=== PATIENT | female | born 1990 | race Caucasian/White ===

== ENCOUNTER 2018-01-29 17:12 | Inpatient (IN) | payer BC ==
[~2018-01-29 17:12] MED LIST: Misoprostol 25 MCG (1/4 of 100 MCG) Tab VAG PRN
[2018-01-29] MEDS ORDERED: Lidocaine 1% 50 ML MDV INJECT PRN (17:51)
[2018-01-29] MEDS ORDERED: Tranexamic Acid 1,000 MG in Sodium Chloride 0.9% 100 ML IV PRN (17:51)
[2018-01-29] MEDS ORDERED: Nalbuphine 10 MG/1 ML Vial IVPUSH PRN (17:51)
[2018-01-29] MEDS ORDERED: Carboprost Tromethamine 250 MCG/1 ML Amp IM PRN (17:51)
[2018-01-29] MEDS ORDERED: Misoprostol 200 MCG Tab PO PRN (17:51)
[2018-01-29] MEDS ORDERED: Water For Irrigation,Sterile 1,000 ML Container IRR PRN (17:51)
[2018-01-29] MEDS ORDERED: Ampicillin 2 GM in Sodium Chloride 0.9% 100 ML IV ONE (17:51)
[2018-01-29] MEDS ORDERED: Sodium Chloride 0.9% 10 ML Syringe FLUSH PRN (17:51)
[2018-01-29] MEDS ORDERED: Sodium Chloride 0.9% 2.5 ML Syringe FLUSH PRN (17:51)
[2018-01-29] MEDS ORDERED: Butorphanol 1 MG/ML SDV IVPUSH PRN (17:51)
[2018-01-29] MEDS ORDERED: Methylergonovine 0.2 MG/1 ML Amp IM PRN (17:51)
[2018-01-29] MEDS ORDERED: Oxytocin/0.9 % Sodium Chloride 30 UNIT/500 ML BAG IV SCH ×2 (18:00→18:15)
[2018-01-29] MEDS ORDERED: Terbutaline 1 MG/ML SDV SUBCUT PRN (18:11)
[2018-01-29] MEDS ORDERED: Misoprostol 25 MCG (1/4 of 100 MCG) Tab VAG SCH (18:30)
[2018-01-29] MEDS: Lactated Ringers 1,000 ML IV SCH (18:40)
[2018-01-29] MEDS ORDERED: Dextrose 5%-0.9% NaCl 1,000 ML IV SCH (19:45)
[2018-01-29] MEDS: Ampicillin 1 GM in Sodium Chloride 0.9% 50 ML IV SCH (23:05)
[2018-01-30] MEDS ORDERED: Ampicillin 1 GM in Sodium Chloride 0.9% 50 ML IV SCH ×2
[2018-01-30] MEDS: Ampicillin 1 GM in Sodium Chloride 0.9% 50 ML IV SCH ×6 (02:54→22:37)
[2018-01-30] MEDS ORDERED: Nalbuphine 10 MG/ML 10 ML MDV IVPUSH PRN (07:15)
[2018-01-30] MEDS: Lactated Ringers 1,000 ML IV SCH ×4 (13:52→20:19)
--- NOTE | 2018-01-30 14:08 | PCM.PREANE ---
Preanesthetic Assessment - Procedure Proposed Procedure: labor epidural - Anesthesia/Transfusion/Family Hx Anesthesia History: Prior Anesthesia Without Reaction Transfusion History: No Prior Transfusion(s) Intubation History: Unknown Additional History: complicated patient due to her Diabetes. On insulin pump. - Review of Systems General: Other (active labor) Pulmonary: No Symptoms Cardiovascular: Other (HTN) Gastrointestinal: Other (GERD) Neurological: No Symptoms (]) Other: Reports: Diabetes - Physical Assessment NPO Status Date: 01/29/18 NPO Status Time: 22:00 Height: 5 ft 1.81 in Weight: 263 lb 15.986 oz ASA Class: 3 Mental Status: Alert & Oriented x3 Airway Class: Mallampati = 2 Dentition: Reports: Normal Dentition Thyro-Mental Finger Breadths: 4 Mouth Opening Finger Breadths: 3 ROM/Head Extension: Limited/Partial Lungs: Clear to Auscultation, Normal Respiratory Effort, Other (left side with rhonchi before a clearing cough) Cardiovascular: Regular Rate, Regular Rhythm, No Murmurs - Lab Values: Laboratory Last Values WBC 8.21 K/uL (4.0-11.0) 01/29/18 18:10 RBC 4.85 M/uL (4.30-5.90) 01/29/18 18:10 Hgb 12.2 g/dL (12.0-16.0) 01/29/18 18:10 Hct 36.7 % (36.0-46.0) 01/29/18 18:10 MCV 75.7 fL (80.0-98.0) L 01/29/18 18:10 MCH 25.2 pg (27.0-32.0) L 01/29/18 18:10 MCHC 33.2 g/dL (31.0-37.0) 01/29/18 18:10 RDW Std Deviation 42.1 fl (28.0-62.0) 01/29/18 18:10 RDW Coeff of Deandra 15 % (11.0-15.0) 01/29/18 18:10 Plt Count 227 K/uL (150-400) 01/29/18 18:10 MPV 11.20 fL (7.40-12.00) 01/29/18 18:10 Nucleated RBC % 0.0 /100WBC 05/20/18 18:10 Nucleated RBCs # 0 K/uL 01/29/18 18:10 POC Glucose 79 mg/dL (60-110) 01/30/18 10:58 Blood Type A POSITIVE 01/29/18 18:10 Antibody Screen NEGATIVE 01/29/18 18:10 - Allergies Allergies/Adverse Reactions: Allergies Allergy/AdvReac Type Severity Reaction Status Date / Time Sulfa (Sulfonamide Allergy Cannot Verified 01/29/18 17:45 Antibiotics) Remember - Blood Blood Available: No Product(s) Available: None - Anesthesia Plan Pre-Op Medication Ordered: None - Acknowledgements Anesthesia Type Planned: Epidural Pt an Appropriate Candidate for the Planned Anesthesia: Yes Alternatives and Risks of Anesthesia Discussed w Pt/Guardian: Yes Pt/Guardian Understands and Agrees with Anesthesia Plan: Yes PreAnesthesia Questionnaire - Past Health History Medical/Surgical History: Denies Medical/Surgical History HEENT History: Reports: None Respiratory History: Reports: Asthma TOUCH UP CARVER History: Reports: , Therapeutic Other OB/BYN History: ovarian cyst removal Psychiatric History: Reports: Anxiety, Bipolar, Depression Endocrine/Metabolic History: Reports: Diabetes, Gestational, Obesity/BMI 30+ - Infectious Disease History Infectious Disease History: Reports: Chicken Pox Other Infectious Disease History: childhood - Past Surgical History HEENT Surgical History: Reports: None Respiratory Surgical History: Reports: None Endocrine Surgical History: Reports: None - SUBSTANCE USE Smoking Status *Q: Former Smoker Tobacco Use Within Last Twelve Months: Cigarettes Second Hand Smoke Exposure: Yes Recreational Drug Use History: No - HOME MEDS Home Medications: Home Meds Insulin Isophane NPH, Human [NovoLIN N] 44 units SQ QAM 01/29/18 [History] Insulin Regular, Human [Novolin R] 26 units .ROUTE QAM 01/29/18 [History] Insulin Regular, Human [Novolin R] 38 units .ROUTE QPM 01/29/18 [History] Montelukast [Singulair] 10 mg PO BEDTIME 01/29/18 [History] Nph, Human Insulin Isophane [Humulin N] 38 units .ROUTE QPM 01/29/18 [History] [id number]/Iron Fumarate/FA/DSS [ 19 Tablet] 1 each PO DAILY 01/29/18 [ History] - CURRENT (IN HOUSE) MEDS Current Meds: Current Medications Butorphanol Tartrate (Stadol) 1 mg IVPUSH Q1H PRN PRN Reason: Pain Last Admin: 01/30/18 11:02 Dose: 1 mg Carboprost Tromethamine (Hemabate Ds) 250 mcg IM ASDIRECTED PRN PRN Reason: Post Hemorrhage Lactated Ringer's (Ringers, Lactated) 1,000 mls @ 150 mls/hr IV ASDIRECTED JORDAN Last Admin: 01/30/18 13:52 Dose: 999 mls/hr Oxytocin/Sodium Chloride (Oxytocin 30 Unit/500 Ml-Ns) 30 unit in 500 mls @ 2 mls/hr IV TITRATE JORDAN Tranexamic Acid 1,000 mg/ (Sodium Chloride) 110 mls @ 660 mls/hr IV ONETIME PRN PRN Reason: Bleeding Insulin Human Regular 100 unit (/ Sodium Chloride) 100 mls @ 0.5 mls/hr IV TITRATE [facility]; Protocol Last Titration: 01/30/18 13:24 Dose: 0.5 unit/hr, 0.5 mls/hr Oxytocin/Sodium Chloride (Oxytocin 30 Unit/500 Ml-Ns) 30 unit in 500 mls @ 2 mls/hr IV TITRATE [facility]; Protocol Last Titration: 01/30/18 13:24 Dose: 10 munits/min, 10 mls/hr Ampicillin Sodium 1 gm/ Sodium (Chloride) 50 mls @ 100 mls/hr IV Q4H [facility] Last Admin: 01/30/18 10:56 Dose: 100 mls/hr Dextrose/Sodium Chloride (Dextrose 5%-Normal Saline) 1,000 mls @ 150 mls/hr IV ASDIRECTED JORDAN Lidocaine HCl (Xylocaine 1%) 50 ml INJECT .ONCE PRN PRN Reason: Laceration repair Methylergonovine Maleate (Methergine) 0.2 mg IM ASDIRECTED PRN PRN Reason: Post Hemorrhage Misoprostol (Cytotec) 200 mcg PO .ONCE PRN PRN Reason: Post Hemorrhage Misoprostol (Cytotec) 25 mcg VAG .ONCE JORDAN Last Admin: 01/29/18 18:51 Dose: 25 mcg Misoprostol (Cytotec) 25 mcg VAG Q6H PRN PRN Reason: Cervical Ripening Nalbuphine HCl (Nubain) 10 mg IVPUSH Q1H PRN PRN Reason: Pain (severe 7-10) Sodium Chloride (Saline Flush) 10 ml FLUSH ASDIRECTED PRN PRN Reason: Keep Vein Open Sodium Chloride (Saline Flush) 2.5 ml FLUSH ASDIRECTED PRN PRN Reason: Keep Vein Open Sterile Water (Sterile Water For Irrigation) 1,000 ml IRR ASDIRECTED PRN PRN Reason: delivery Terbutaline Sulfate (Brethine) 0.25 mg SUBCUT ASDIRECTED PRN PRN Reason: Tacysystole Discontinued Medications Ampicillin Sodium 2 gm/ Sodium (Chloride) 100 mls @ 200 mls/hr IV ONETIME ONE Stop: 01/29/18 18:20 Last Admin: 01/29/18 18:40 Dose: 200 mls/hr Nalbuphine HCl (Nubain) 10 mg IVPUSH Q1H PRN PRN Reason: Pain (severe 7-10)
[2018-01-30] MEDS ORDERED: fentaNYL 100 MCG/2 ML SDV ONE ×2 (15:16→20:56)
--- NOTE | 2018-01-30 16:37 | PCM.SN ---
- Free Text/Narrative Note: Patient required additional time to determine best dose and she vasodilated readily to the same. Fluid resuscitation at the bedside was done with good response...fetus handled this well. additional time was required to complete the beginning of the continuous infusion. see anesthetic record and OB [facility] record.
[2018-01-31] MEDS ORDERED: fentaNYL 100 MCG/2 ML SDV ONE (00:47)
[2018-01-31] MEDS ORDERED: Witch Hazel Medicated Pads 40/Jar TOP ONE (05:05)
[2018-01-31] MEDS ORDERED: Benzocaine/Menthol 20%-0.5% Spray 78 GM Cannister ONE (05:06)
[2018-01-31] MEDS ORDERED: Ibuprofen 800 MG Tab PO PRN (07:16)
[2018-01-31] MEDS ORDERED: Witch Hazel Medicated Pads 40/Jar TOP PRN (07:16)
[2018-01-31] MEDS ORDERED: Benzocaine/Menthol 20%-0.5% Spray 78 GM Cannister TOP PRN (07:16)
[2018-01-31] MEDS ORDERED: Aluminum Hydroxide/Magnesium Hydroxide/Simethicone Susp 30 ML Cup PO PRN (07:44)
[2018-01-31] MEDS ORDERED: Hydrocortisone 2.5% Crm 30 GM Tube TOP PRN (07:49)
[2018-01-31] MEDS: Ampicillin 1 GM in Sodium Chloride 0.9% 50 ML IV SCH ×3 (07:57→18:40)
[2018-01-31] MEDS: Ibuprofen 400 MG Tab PO PRN ×2 (08:53→17:48)
[2018-01-31] MEDS: Docusate Sodium 100 MG Cap PO SCH ×2 (08:53→20:22)
--- NOTE | 2018-01-31 09:35 | PCM48HPAN ---
Post Anesthesia Note - EVALUATION WITHIN 48HRS OF ANESTHETIC Vital Signs in Normal Range: Yes Patient Participated in Evaluation: Yes Respiratory Function Stable: Yes Airway Patent: Yes Cardiovascular Function Stable: Yes Hydration Status Stable: Yes Pain Control Satisfactory: Yes Nausea and Vomiting Control Satisfactory: Yes Mental Status Recovered: Yes Resp Rate: 16 - COMMENTS/OBSERVATIONS Free Text/Narrative:: Baby being breast fed by new mom who was ecstatic about the completion of a difficult labor.
--- NOTE | 2018-01-31 10:38 | OR ---
SURGEON: Deya Perales M.D. DATE OF PROCEDURE: 01/31/2018 PREOPERATIVE DIAGNOSES: 1. A 39 and 3 week intrauterine . 2. Induction of labour for diabetes, insulin controlled. POSTOPERATIVE DIAGNOSES: 1. A 39 and 3 week intrauterine . 2. Induction of labour for diabetes, insulin controlled. PROCEDURE: Spontaneous vaginal delivery. Second degree midline laceration repaired. ANESTHESIA: Epidural. ESTIMATED BLOOD LOSS: 450 mL. FINDINGS: Term female, score 9 at 1 minute, 9 at 5 minutes. Weight of 3850 g. Spontaneous delivery, intact placenta, 3-vessel cord. DISPOSITION: Infant to nursery, mom in LDRP. PROCEDURE IN DETAIL: Tori is a 27-year-old, G2, P0-0-1-0 at 39 and 2 weeks' gestational age. She was admitted on the evening of 01/29/2018 for Cytotec induction due to diabetes which has been insulin controlled during the . She was admitted, received a dose of Cytotec, progressed nicely to 3 cm. Glucoses were ranging in the 70s for the most part with an initial one that was in the one teens. She was on insulin drip in most of the labor. She was on 0.5 units/hour. The following morning was initiated on Pitocin augmentation shortly after 9:00 am, underwent amniotomy, clear fluid was returned. At that time, she was found to be 3 cm. She continued to progress and became increasingly uncomfortable over the next few hours and underwent regional anesthesia in the form of epidural. At that time, she was found to be 5 to 6 cm dilated. Continued to progress throughout the afternoon. An IUPC was placed to help monitor the pattern of the Pitocin. At that time, she was found to be 6 cm, 90% effaced, 0 station. heart tones in the 130s with variability. Glucose remained in the 70s. Shortly before midnight, the patient was found to be complete +1 station, was allowed to labor for another hour and began pushing efforts. She pushed well and was able to progress to a +4 station. I was called for delivery. Upon my arrival, the patient placed in modified dorsal lithotomy position. Prepped and draped in the usual aseptic manner. Continued with pushing efforts and was able to deliver infant's head atraumatically, followed by the anterior shoulder, posterior shoulder and the remainder of the body. 's oropharynx and nares were bulb suctioned. Cord clamped x2 and cut. Infant was handed off to her mother, attending nursing staff at her side. Cord arterial, cord venous, cord blood sampling was obtained. Light pressure was applied while the placenta was delivered spontaneously intact. Vigorous fundal and uterine massage then applied while 30 units Pitocin was delivered in 500 mL of IV fluid. Upon inspection of cervix, vaginal sidewalls, and perineum, there was found to be a second-degree midline laceration which was repaired using 3-0 Vicryl in the usual fashion. There was also a first-degree right labial laceration repaired with a [id number] suture. The uterus wanted to become boggy, fit somewhat easily, therefore, continued a second bag of Pitocin and with fundal massage was able to help the uterus contract nicely and hemostasis was present. Sponge count, needle count was correct. The patient tolerated the procedure well overall. She will remain in LDRP, to nursery. RUDI / JOHNY /[id number]
[2018-01-31] MEDS: Acetaminophen/oxyCODONE 325-5 MG Tab PO PRN (20:23)
[2018-02-01] MEDS: Acetaminophen/oxyCODONE 325-5 MG Tab PO PRN (05:51)
[2018-02-01] MEDS: Ampicillin 1 GM in Sodium Chloride 0.9% 50 ML IV SCH (07:40)
--- NOTE | 2018-02-01 09:13 | PCM.PNPP ---
- General Info Date of Service: 02/01/18 Functional Status: Reports: Pain Controlled, Tolerating Diet, Ambulating, Urinating - Review of Systems General: Denies: Fever, Weakness Pulmonary: Denies: Shortness of Breath Cardiovascular: Denies: Chest Pain, Palpitations, Lightheadedness Gastrointestinal: Reports: Flatus. Denies: Abdominal Pain, Nausea, Vomiting Genitourinary: Denies: Flank Pain Skin: Reports: No Symptoms Psychiatric: Reports: No Symptoms - Patient Data Vital Signs - Most Recent: Last Vital Signs Temp 36.6 C 02/01/18 04:00 Pulse 73 01/31/18 20:00 Resp 16 02/01/18 04:00 BP 131/67 02/01/18 04:00 Pulse Ox 95 02/01/18 04:00 Weight - Most Recent: 119.748 kg Lab Results - Last 24 Hours: Laboratory Results - last 24 hr 01/31/18 02/01/18 02/01/18 Range/Units 20:12 06:05 08:26 Hgb 9.6 L (12.0-16.0) g/dL Hct 29.5 L (36.0-46.0) % POC Glucose 83 85 (60-110) mg/dL Med Orders - Current: Current Medications Al Hydroxide/Mg Hydroxide (Mag-Al Plus) 30 ml PO Q4H PRN PRN Reason: Heartburn Benzocaine/Menthol (Dermoplast Pain Relief 20%-0.5% [place]) 78 gm TOP ASDIRECTED PRN PRN Reason: Perineal Comfort Measure Butorphanol Tartrate (Stadol) 1 mg IVPUSH Q1H PRN PRN Reason: Pain Last Admin: 01/30/18 11:02 Dose: 1 mg Carboprost Tromethamine (Hemabate Ds) 250 mcg IM ASDIRECTED PRN PRN Reason: Post Hemorrhage Docusate Sodium (Colace) 100 mg PO BID JORDAN Last Admin: 01/31/18 20:22 Dose: 100 mg Hydrocortisone (Proctozone-Hc 2.5% Crm) 1 gm TOP ASDIRECTED PRN PRN Reason: Hemorrhoids Lactated Ringer's (Ringers, Lactated) 1,000 mls @ 150 mls/hr IV ASDIRECTED JORDAN Last Admin: 01/30/18 20:19 Dose: 500 mls/hr Oxytocin/Sodium Chloride (Oxytocin 30 Unit/500 Ml-Ns) 30 unit in 500 mls @ 2 mls/hr IV TITRATE JORDAN Tranexamic Acid 1,000 mg/ (Sodium Chloride) 110 mls @ 660 mls/hr IV ONETIME PRN PRN Reason: Bleeding Insulin Human Regular 100 unit (/ Sodium Chloride) 100 mls @ 0.5 mls/hr IV TITRATE JORDAN; Protocol Last Titration: 01/30/18 21:23 Dose: 0.5 unit/hr, 0.5 mls/hr Oxytocin/Sodium Chloride (Oxytocin 30 Unit/500 Ml-Ns) 30 unit in 500 mls @ 2 mls/hr IV TITRATE JORDAN; Protocol Last Titration: 01/31/18 02:26 Dose: 500 munits/min, 500 mls/hr Ampicillin Sodium 1 gm/ Sodium (Chloride) 50 mls @ 100 mls/hr IV Q4H JORDAN Last Admin: 02/01/18 07:40 Dose: Not Given Dextrose/Sodium Chloride (Dextrose 5%-Normal Saline) 1,000 mls @ 150 mls/hr IV ASDIRECTED JORDAN Last Admin: 01/30/18 20:27 Dose: 150 mls/hr Ibuprofen (Motrin) 400 mg PO Q4H PRN PRN Reason: Pain Last Admin: 01/31/18 17:48 Dose: 400 mg Lidocaine HCl (Xylocaine 1%) 50 ml INJECT .ONCE PRN PRN Reason: Laceration repair Measles/Mumps/Rubella Vaccine Live (M-M-R Ii Vaccine) 0.5 ml SUBCUT .ONCE ONE Stop: 02/02/18 02:27 Methylergonovine Maleate (Methergine) 0.2 mg IM ASDIRECTED PRN PRN Reason: Post Hemorrhage Misoprostol (Cytotec) 200 mcg PO .ONCE PRN PRN Reason: Post Hemorrhage Misoprostol (Cytotec) 25 mcg VAG .ONCE JORDAN Last Admin: 01/29/18 18:51 Dose: 25 mcg Misoprostol (Cytotec) 25 mcg VAG Q6H PRN PRN Reason: Cervical Ripening Nalbuphine HCl (Nubain) 10 mg IVPUSH Q1H PRN PRN Reason: Pain (severe 7-10) Oxycodone/Acetaminophen (Percocet 325-5 Mg) 1 tab PO Q4H PRN PRN Reason: Pain Last Admin: 02/01/18 05:51 Dose: 1 tab Sodium Chloride (Saline Flush) 10 ml FLUSH ASDIRECTED PRN PRN Reason: Keep Vein Open Sodium Chloride (Saline Flush) 2.5 ml FLUSH ASDIRECTED PRN PRN Reason: Keep Vein Open Sterile Water (Sterile Water For Irrigation) 1,000 ml IRR ASDIRECTED PRN PRN Reason: delivery Terbutaline Sulfate (Brethine) 0.25 mg SUBCUT ASDIRECTED PRN PRN Reason: Tacysystole [place] (Tucks) 1 pad TOP ASDIRECTED PRN PRN Reason: comfort care Discontinued Medications Benzocaine/Menthol (Dermoplast Pain Relief 20%-0.5% [place]) Confirm Administered Dose 78 gm .ROUTE .STK-MED ONE Stop: 01/31/18 05:07 Last Admin: 01/31/18 06:59 Dose: 78 gm Fentanyl (Sublimaze) Confirm Administered Dose 100 mcg .ROUTE .STK-MED ONE Stop: 01/30/18 15:17 Last Admin: 01/31/18 07:56 Dose: Not Given Fentanyl (Sublimaze) Confirm Administered Dose 100 mcg .ROUTE .STK-MED ONE Stop: 01/30/18 20:57 Last Admin: 01/31/18 07:56 Dose: Not Given Fentanyl (Sublimaze) Confirm Administered Dose 100 mcg .ROUTE .STK-MED ONE Stop: 01/31/18 00:48 Last Admin: 01/31/18 07:57 Dose: Not Given Ampicillin Sodium 2 gm/ Sodium (Chloride) 100 mls @ 200 mls/hr IV ONETIME ONE Stop: 01/29/18 18:20 Last Admin: 01/29/18 18:40 Dose: 200 mls/hr Fentanyl/Bupivacaine HCl (Wuzgnzcn-Izcdr-Uj 2 Mcg/Ml-0.125%) Confirm Administered Dose 100 mls @ as directed EP .STK-MED ONE Stop: 01/30/18 15:17 Last Admin: 01/31/18 07:56 Dose: Not Given Fentanyl/Bupivacaine HCl (Ocsqphiv-Yqflz-Gp 2 Mcg/Ml-0.125%) Confirm Administered Dose 100 mls @ as directed EP .STK-MED ONE Stop: 01/31/18 00:48 Last Admin: 01/31/18 07:56 Dose: Not Given Ibuprofen (Motrin) 800 mg PO Q6H PRN PRN Reason: Pain Nalbuphine HCl (Nubain) 10 mg IVPUSH Q1H PRN PRN Reason: Pain (severe 7-10) Witch [place] (Tucks) Confirm Administered Dose 1 pad TOP .STK-MED ONE Stop: 01/31/18 05:06 Last Admin: 01/31/18 06:58 Dose: 1 pad - Interaction Support Person: Significant Other - Recovery Exam Fundal Tone: Firm Fundal Level: 1 Fingerbreadths Below Umbilicus Fundal Placement: Midline Lochia Amount: Scant Lochia Color: Rubra/Red Perineum Description: Other (see below) Other Perinuem Description: laceration, repaired Episiotomy/Laceration: Approximated Bladder Status: Voiding Urinary Elimination: Voided - Exam General: Alert, Oriented Lungs: Normal Respiratory Effort Cardiovascular: Regular Rate, Regular Rhythm GI/Abdominal Exam: Normal Bowel Sounds, Soft. No: Tender Extremities: Pedal Edema (trace). No: Emerita's Sign Skin: Warm, Dry, Intact Psy/Mental Status: Alert, Normal Affect - Problem List & Annotations (1) Vaginal delivery SNOMED Code(s): 409977210 Code(s): O80 - ENCOUNTER FOR FULL-TERM UNCOMPLICATED DELIVERY Status: Acute Current Visit: Yes - Problem List Review Problem List Initiated/Reviewed/Updated: Yes - My Orders Last 24 Hours: My Active Orders 01/31/18 09:00 Docusate Sodium [Colace] 100 mg PO BID 02/01/18 09:07 Ready for Discharge [RC] PER UNIT ROUTINE 02/02/18 02:26 Measles, Mumps & Rubella [M-M-R II Vaccine] 0.5 ml SUBCUT .ONCE ONE - Assessment Assessment:: PPD 1 status post Diabetes - Plan Plan:: Patient is ready to go home. Will continue to monitor glucoses at home while following diabetic diet. Will call if FBS >110 or PP >130. Will plan follow up at [facility] for diabetes Infection and bleeding warnings reviewed Discharge to home. Follow up at [facility] 6 weeks
[2018-02-01 13:51] VITALS: BP 123/74
[2018-02-02] MEDS ORDERED: Measles, Mumps & Rubella Vaccine 0.5 ML SDV SUBCUT ONE (02:26)
== END 2018-02-01 12:55 | disposition home or self-care (01) | DRG 560 ==
LOC: MW.OBCHECK 17:12 → MW.OB 17:15 → MW.OBCHECK 17:51 → MW.OB 17:52 → OBSVTOIN 01-31 03:01 → MW.OB 01-31 09:55
PROVIDERS: ADMIT Obstetrics & Gynecology; ATTEND Obstetrics & Gynecology
PROC: 10E0XZZ Delivery of Products of Conception, External Approach (ICD-10-PCS; principal; 2018-01-31)
PROC: 3E0P7VZ Introduction of Hormone into Female Reproductive, Via Natural or Artificial Opening (ICD-10-PCS; 2018-01-31)
PROC: 3E033VJ Introduction of Other Hormone into Peripheral Vein, Percutaneous Approach (ICD-10-PCS; 2018-01-31)
PROC: 0KQM0ZZ Repair Perineum Muscle, Open Approach (ICD-10-PCS; 2018-01-31)
PROC: 4A1H7CZ Monitoring of Products of Conception, Cardiac Rate, Via Natural or Artificial Opening (ICD-10-PCS; 2018-01-31)
DX: O24.12 Pre-existing type 2 diabetes mellitus, in childbirth (principal); E11.9 Type 2 diabetes mellitus without complications; O70.1 Second degree perineal laceration during delivery; Z3A.39 39 weeks gestation of pregnancy; Z37.0 Single live birth; Z79.4 Long term (current) use of insulin
CPT/HCPCS: 36415; 51702; 59025; 59409; 82803; 82962; 85014; 85018; 85027; 86850; 86900; 86901; A9270-GY; J0290; J0595; J2590; J7030; J7042; J7050; J7120